=== PATIENT | female | born 1945 | race Caucasian/White ===

== ENCOUNTER → 2017-11-21 10:39 | Outpatient (CLI) | payer BC, SELFPAY | PROVIDERS: Visit Provider Obstetrics & Gynecology | DX: N39.0 Urinary tract infection, site not specified (principal) | CPT/HCPCS: 87086; 87088; 87186 ==

== ENCOUNTER → 2018-12-16 12:42 | Outpatient (CLI) | payer BC, SELFPAY ==
--- NOTE | 2018-12-16 12:45 | CDU_ITS ---
Reason For Study: carotid stenosis Rt. Velocities/BP Lt. Velocities/BP Prox CCA 181.9/30.3 cm/sec. Prox CCA 127.7/23.6 cm/sec. Mid CCA 107.6/25.4 cm/sec. Mid CCA 78.4/27.2 cm/sec. Dist CCA 80.2/25.4 cm/sec. Dist CCA 93.0/23.6 cm/sec. Prox ICA 342.9/45.9 cm/sec. Prox ICA 71.1/20.8 cm/sec. Mid ICA 187.1/44.9 cm/sec. Mid ICA 80.9/22.0 cm/sec. Dist ICA 74.8/25.7 cm/sec. Dist ICA 77.3/23.2 cm/sec. Rt. ICA/CCA = 187.1/107.6=1.7. Lt. ICA/CCA = 80.9/78.4=1.0. Prox ECA 285.9/31.0 cm/sec. Prox ECA 151.2/17.3 cm/sec. Rt. Vert. 60.0/17.1 cm/sec. Lt. Vert. 46.5/12.2 cm/sec. Right Extracranial There is homogeneous, smooth atherosclerotic plaque noted in the right common carotid artery. Antegrade flow is noted in the right vertebral artery. There is heterogeneous, irregular atherosclerotic plaque noted in the right bulb. Left Extracranial There is intimal thickening but no significant atherosclerotic plaque noted in the left common carotid artery. There is homogeneous, smooth atherosclerotic plaque noted in the left internal carotid artery. There is intimal thickening but no significant atherosclerotic plaque noted in the left external carotid artery. Antegrade flow is noted in the left vertebral artery. There is homogeneous, smooth atherosclerotic plaque noted in the left bulb. Interpretation Summary Irregular plague distal right common carotid, proximal internal and external carotids >70& stenosis right internal carotid >50% stenosis right external carotid Smooth plague proximal left internal caroitd <50% stenosis left internal carotid <50% stenosis left external carotid Patent and antegrade vertebrals bilaterally with <50% stenosis. Ordering Physician: Kg Musa Referring Physician: Maikel Arenas Performed By: Evelyn Goldstein RDCS, RVT
== END ==
PROVIDERS: Family Provider Family Medicine; PCP Family Medicine; Referring Provider Surgery; Visit Provider Surgery
DX: I65.23 Occlusion and stenosis of bilateral carotid arteries (principal)
CPT/HCPCS: 93880

== ENCOUNTER → 2019-10-12 19:16 | Outpatient (CLI) | payer BC, SELFPAY ==
[2018-12-18 16:00] VITALS: BMI 25.7
== END ==
PROVIDERS: PCP Family Medicine; Referring Provider Family Medicine; Visit Provider Family Medicine
DX: Z20.828 Contact with and (suspected) exposure to other viral communicable diseases (principal)
CPT/HCPCS: 87635; G2023; U0003

== ENCOUNTER → 2020-01-02 09:41 | Outpatient (CLI) | payer BC, SELFPAY ==
[2018-12-18 16:00] VITALS: BMI 25.7
--- NOTE | 2020-01-02 09:44 | CDU_ITS ---
Reason For Study: STENOSIS Rt. Velocities/BP Lt. Velocities/BP Prox CCA 81/15 cm/sec. Prox CCA 60/18 cm/sec. Mid CCA 154/25 cm/sec. Mid CCA 72/21 cm/sec. Dist CCA 74/23 cm/sec. Dist CCA 82/22 cm/sec. Prox ICA 274/27 cm/sec. Prox ICA 71/22 cm/sec. Mid ICA 114/28 cm/sec. Mid ICA 71/22 cm/sec. Dist ICA 58/20 cm/sec. Dist ICA 62/20 cm/sec. Rt. ICA/CCA = 3.4. Lt. ICA/CCA = 1.0. Prox ECA 270/31 cm/sec. Prox ECA 99/13 cm/sec. Rt. Vert. 30/7 cm/sec. Lt. Vert. 38/8 cm/sec. Right Extracranial There is homogeneous, smooth atherosclerotic plaque noted in the right common carotid artery. There is homogeneous, irregular atherosclerotic plaque noted in the right internal carotid artery. There is heterogeneous, smooth atherosclerotic plaque noted in the right internal carotid artery. There is heterogeneous, irregular atherosclerotic plaque noted in the right external carotid artery. Antegrade flow is noted in the right vertebral artery. There is heterogeneous, irregular atherosclerotic plaque noted in the right bulb. Left Extracranial There is homogeneous, smooth atherosclerotic plaque noted in the left common carotid artery. There is heterogeneous, smooth atherosclerotic plaque noted in the left internal carotid artery. There is homogeneous, smooth atherosclerotic plaque noted in the left external carotid artery. Antegrade flow is noted in the left vertebral artery. Procedure Carotid Duplex [id number]. Exam performed in department. Interpretation Summary Irregular calcific plague at the proximal right internal carotid with >70% stenosis >50% stenosis right external carotid Smooth plague at the proximal left internal carotid with <50% stenosis <50%stenosis left external carotid Patent, antegrade vertebrals bilaterally No change from 12/26/18 Ordering Physician: Kg Musa Referring Physician: GIANCARLO LOZOYA Performed By: Felicia Ceron, RDCS, RVT
== END ==
PROVIDERS: PCP Internal Medicine; Referring Provider Surgery; Visit Provider Surgery
DX: I65.23 Occlusion and stenosis of bilateral carotid arteries (principal)
CPT/HCPCS: 93880

== ENCOUNTER → 2020-01-16 11:12 | Outpatient (CLI) | payer BC, SELFPAY ==
[2020-01-06 13:06] VITALS: BMI 26.5
[2020-01-16 15:39] LABS: Estradiol < 11.0 pg/mL; Follicle Stimulating Hormone 73.4 mIU/mL; Luteinizing Hormone 21.3 mIU/mL; Prolactin 2.1 ng/mL
[2020-01-16 15:44] LABS: Progesterone Level 0.67 ng/mL (See Comment)
== END ==
PROVIDERS: PCP Internal Medicine; Visit Provider Student in an Organized Health Care Education/Training Program
DX: N95.1 Menopausal and female climacteric states (principal)
CPT/HCPCS: 36415; 82670; 83001; 83002; 84144; 84146

== ENCOUNTER → 2020-12-03 09:39 | Outpatient (CLI) | payer BC, SELFPAY ==
[2020-01-06 13:06] VITALS: BMI 26.5
--- NOTE | 2020-12-03 10:00 | CDU_ITS ---
Reason For Study: Carotid stenosis Rt. Velocities/BP Lt. Velocities/BP Prox CCA 100.8/17.3 cm/sec. Prox CCA 95.4/26.1 cm/sec. Mid CCA 100.8/20 cm/sec. Mid CCA 58.6/14.6 cm/sec. Dist CCA 64.3/18.6 cm/sec. Dist CCA 73.9/25.6 cm/sec. Prox ICA 304.8/62.4 cm/sec. Prox ICA 58.1/20 cm/sec. Mid ICA 227.2/23.6 cm/sec. Mid ICA 81.4/22.5 cm/sec. Dist ICA 91.9/22.5 cm/sec. Dist ICA 82.7/27.4 cm/sec. Rt. ICA/CCA = 3.02. Lt. ICA/CCA = 1.12. Prox ECA 210.7/39.6 cm/sec. Prox ECA 101.1/13.9 cm/sec. Rt. Vert. 57.2/11.5 cm/sec. Lt. Vert. 47/11.4 cm/sec. Right Extracranial There is homogeneous, smooth atherosclerotic plaque noted in the right common carotid artery. There is heterogeneous, irregular atherosclerotic plaque noted in the right internal carotid artery. There is heterogeneous, irregular atherosclerotic plaque noted in the right external carotid artery. Antegrade flow is noted in the right vertebral artery. Left Extracranial There is homogeneous, smooth atherosclerotic plaque noted in the left common carotid artery. There is heterogeneous, smooth atherosclerotic plaque noted in the left internal carotid artery. There is homogeneous, smooth atherosclerotic plaque noted in the left external carotid artery. Antegrade flow is noted in the left vertebral artery. Procedure Carotid Duplex [id number]. This is a Carotid Duplex examination using B-mode, color flow and specral Doppler. Exam performed in department. VL/Carotid Duplex Ultrasound Interpretation Summary Irregular plaque at the proximal right internal carotid artery with greater mirza n 70% stenosis. Greater than 50% stenosis right external carotid artery Smooth plaque at the proximal left internal carotid artery with less than 50% s tenosis Less than 50% stenosis left external carotid artery Patent and antegrade vertebral arteries bilaterally No hemodynamically significant change from the previous examination of Septembe r 2019 although the peak systolic velocity within the right internal carotid is slightly more e levated on this exam Ordering Physician: Chriss Parker Referring Physician: Chriss Parker Performed By: Liz Jaimes RVT
== END ==
PROVIDERS: PCP Internal Medicine; Referring Provider Pathology Anatomic Pathology & Clinical Pathology; Visit Provider Internal Medicine
DX: I65.29 Occlusion and stenosis of unspecified carotid artery (principal)
CPT/HCPCS: 93880

== ENCOUNTER → 2022-01-02 | Outpatient (CLI) | payer BC, SELFPAY ==
--- NOTE | 2022-01-02 13:48 | CDU_ITS ---
Reason For Study: Carotid Stenosis Rt. Velocities/BP Lt. Velocities/BP Prox CCA 108/22 cm/sec. Prox CCA 99/20 cm/sec. Mid CCA 65/13 cm/sec. Mid CCA 74/18 cm/sec. Dist CCA 65/14 cm/sec. Dist CCA 78/19 cm/sec. Prox ICA 264/47 cm/sec. Prox ICA 70/16 cm/sec. Mid ICA 340/49 cm/sec. Mid ICA 70/19 cm/sec. Dist ICA 77/16 cm/sec. Dist ICA 81/22 cm/sec. Rt. ICA/CCA = 5.23. Lt. ICA/CCA = 1.1. Prox ECA 122/16 cm/sec. Prox ECA 110/15 cm/sec. Rt. Vert. 83/13 cm/sec. Lt. Vert. 34 cm/sec. Right Extracranial There is heterogeneous, irregular atherosclerotic plaque noted in the right common carotid artery. There is heterogeneous, irregular atherosclerotic plaque noted in the right internal carotid artery. There is heterogeneous, irregular atherosclerotic plaque noted in the right external carotid artery. Antegrade flow is noted in the right vertebral artery. Left Extracranial There is homogeneous, smooth atherosclerotic plaque noted in the left common carotid artery. There is heterogeneous, smooth atherosclerotic plaque noted in the left internal carotid artery. There is homogeneous, irregular atherosclerotic plaque noted in the left external carotid artery. Antegrade flow is noted in the left vertebral artery. VL/Carotid Duplex Ultrasound Interpretation Summary Irregular calcific plaque with shadowing at the proximal right internal carotid artery with greater than 70% stenosis of the right internal carotid artery Less than 50% stenosis right external carotid artery Smooth plaque at the proximal left internal carotid artery with less than 50% s tenosis Less than 50% stenosis left external carotid artery Patent and antegrade vertebral arteries bilaterally Findings are similar to the previous examination of December 03, 2020 although th e absolute velocity within the right mid internal carotid artery is slightly additionally elevated at 340 cm/s flow. The previously identified greater than 50% stenosis the right external carotid geovanna ry is not identified on this exam. Ordering Physician: Chriss Parker Referring Physician: Chriss Parker Performed By: Ashely River, EMMA, RVT
== END | disposition home or self-care (01) ==
LOC: CVS 13:46
PROVIDERS: PCP Internal Medicine; Referring Provider Internal Medicine; Visit Provider Internal Medicine
DX: I65.23 Occlusion and stenosis of bilateral carotid arteries (principal)
CPT/HCPCS: 93880

== ENCOUNTER → 2023-09-17 | Outpatient (CLI) | payer BC, SELFPAY ==
[2023-09-17 17:34] LABS: Hematocrit 37.4 % (37-47); Mean Corp Hgb Conc 32.1 g/dL (32-36); Mean Corpuscular Hgb 30.3 pg (27.0-32.0); Mean Corpuscular Volume 94.4 fL (81-99); Mean Platelet Vol. 9.6 fl (6.2-12.0); Platelet Count 327 K/mm3 (150-450); RBC Distribution Width CV 12.9 % (11.6-14.6); Red Blood Count 3.96 M/mm3 (4.2-5.4); White Blood Count 10.2 K/mm3 (4.4-11.0)
[2023-09-17 18:00] LABS: Hemoglobin A1c 5.8 % (3.8-5.6)
[2023-09-17 18:05] LABS: Anion Gap 6 (5-15); BUN 14 mg/dL (7-18); BUN/Creat Ratio 18.5 RATIO (10-20); Calcium,Total 10.4 mg/dL (8.5-10.1); Chloride 106 mmol/L (98-107); Creatinine, Serum 0.76 mg/dL (0.55-1.02); EST Glomerular Filtration Rate 79 mL/min (>60); Est Glom Filt Rate - Afr Amer 95 mL/min (>60); Glucose 86 mg/dL (74-106); Potassium 3.8 mmol/L (3.5-5.1); Sodium Level 140 mmol/L (136-145)
== END | disposition home or self-care (01) ==
LOC: MTLAB 14:22
PROVIDERS: PCP Internal Medicine; Referring Provider Urology; Visit Provider Urology
DX: N39.0 Urinary tract infection, site not specified (principal); G35 Multiple sclerosis
CPT/HCPCS: 36415; 80048; 83036; 85027

== ENCOUNTER → 2024-10-07 | Outpatient (CLI) | payer BC, SELFPAY ==
--- NOTE | 2024-10-07 15:02 | RAD_ITS ---
PROCEDURE: ABD INC DECUB AND/OR ERECT 10/07/2024 REASON FOR EXAM: CONSTIPATION Abdominal distention TECHNIQUE: ABD INC DECUB AND/OR ERECT three views obtained COMPARISON: None FINDINGS: Bowel gas: Unremarkable and nonspecific, no evidence of ileus or obstruction no significant retained stool. Calcifications: No suspicious calcifications Bones: Bony structures show degenerative change. No demonstrated fracture or suspicious osseous lesion. Surgical hardware L5 and S1 free of complication Other: RAD/Abd Inc Decub and/or Erect IMPRESSION: No acute abdominal or pelvic process no significant retained stool Reading Location: [id number]
--- NOTE | 2024-10-07 15:02 | RAD_ITS ---
PROCEDURE: ABD INC DECUB AND/OR ERECT 10/07/2024 REASON FOR EXAM: CONSTIPATION Abdominal distention TECHNIQUE: ABD INC DECUB AND/OR ERECT three views obtained COMPARISON: None FINDINGS: Bowel gas: Unremarkable and nonspecific, no evidence of ileus or obstruction no significant retained stool. Calcifications: No suspicious calcifications Bones: Bony structures show degenerative change. No demonstrated fracture or suspicious osseous lesion. Surgical hardware L5 and S1 free of complication Other: RAD/Abd Inc Decub and/or Erect IMPRESSION: No acute abdominal or pelvic process no significant retained stool Reading Location: [id number]
[2024-10-07 18:24] LABS: AST(SGOT) 20 U/L (<=31); Alanine Aminotransfer ALT/SGPT 15 U/L (<=34); Albumin, Serum 4.6 g/dL (3.4-4.8); Alkaline Phosphatase 87 U/L (35-104); Anion Gap 11 (5-15); BUN 18 mg/dL (4-19); BUN/Creat Ratio 29.6 RATIO (10-20); Calcium,Total 10.4 mg/dL (7.6-11.0); Carbon Dioxide 25.7 mmol/L (21.0-32.0); Chloride 105 mmol/L (98-108); Globulin 2.8 g/dL (2.2-4.2); Glucose 101 mg/dL (70-99); Potassium 4.0 mmol/L (3.3-5.1); T4 Total, Thyroxin 7.3 ug/dL (4.8-13.9)
== END | disposition home or self-care (01) ==
LOC: MTLAB 14:59
PROVIDERS: PCP Internal Medicine; Referring Provider Internal Medicine Gastroenterology; Visit Provider Internal Medicine Gastroenterology
DX: R10.9 Unspecified abdominal pain (principal); K59.00 Constipation, unspecified
CPT/HCPCS: 36415; 74019; 80053; 84436; 84443